=== PATIENT | female | born 1980 | race Caucasian/White ===

== ENCOUNTER 2019-12-26 14:59 | Inpatient (IN) | payer MEDICAID, SELFPAY ==
[~2019-12-26] VITALS: Ht 167.6 cm; Wt 68.0 kg
[2019-12-26 15:24] VITALS: BP 132/66
--- NOTE | 2019-12-26 15:34 | NUR ---
39 Y/O FEMALE C/O WEAKNESS/SOB/FEVER SINCE LAST NIGHT. PT APPEARS LETHARGIC. RESP EVEN AND UNLABORED. LUNG SOUNDS CLEAR IN BILAT LOBES. PT IS SLIGHTLY DIAPHORETIC. SINUS RHYTHM TACHYCARDIC. PT ALSO REPORTS HEMATURIA X1 DAYS, PT IS CURRENTLY TAKING TESTOSTERONE FOR GENDER TRANSITION. PMH: HEP C
[2019-12-26] MEDS ORDERED: NACL 0.9% 2,000 ML IV ONE (15:40)
--- NOTE | 2019-12-26 15:57 | NUR ---
PT STATES UNABLE TO URINATE AT THIS TIME, ERMD MADE AWARE
[2019-12-26 16:02] LABS: HEMATOCRIT 46.2 % (36-48); HEMOGLOBIN 15.3 g/dL (12.0-16.0); MEAN CORPUSCULAR HEMOGLOBIN 31 pg (27-31); MEAN CORPUSCULAR HGB CONC 33 g/dL (33-37); MEAN CORPUSCULAR VOLUME 94.5 fL (80-94); PLATELET COUNT (AUTO) 192 K/uL (140-450); RED BLOOD CELL COUNT(AUTO) 4.89 MIL/uL (4.20-5.40); RED CELL DISTRIBUTION WIDTH 12.7 % (11.6-13.7); WHITE BLOOD COUNT (AUTO) 16.4 K/uL (4.8-10.8)
[2019-12-26 16:16] LABS: PROTHROMBIN TIME 11.3 secs (10.8-13.4)
--- NOTE | 2019-12-26 16:16 | NUR ---
COVID SWAB SENT TO LAB
[2019-12-26 16:18] LABS: ALBUMIN 3.1 g/dL (3.4-5.0); ANION GAP 11.5 (8-16); CARBON DIOXIDE 27.6 mmol/L (21-32); CREATININE 1.3 mg/dL (0.6-1.3); POTASSIUM 3.1 mmol/L (3.5-5.1); TOTAL BILIRUBIN 1.4 mg/dL (0.0-1.0)
[2019-12-26 16:30] LABS: LYMPHOCYTES % (MANUAL) 1 % (20-46)
[2019-12-26] MEDS ORDERED: PIPERACILLIN/TAZOBACTAM 3.375 GM in DEXTROSE 5% 50 ML IV SCH (16:45)
[2019-12-26] MEDS ORDERED: NACL 0.9% 1,000 ML IV SCH (16:45)
--- NOTE | 2019-12-26 17:28 | NUR ---
CONSENT SIGNED FOR CT WITH CONTRAST
[2019-12-26] MEDS ORDERED: PIPERACILLIN/TAZOBACTAM 3.375 GM VIAL IV ONE (17:45)
--- NOTE | 2019-12-26 18:53 | NUR ---
PT ALERT AND AWAKE, BREATHING EVEN AND UNLABORED. NO DISTRESS NOTED.
--- NOTE | 2019-12-26 19:27 | NUR ---
REPORT GIVEN TO FERMIN MARTINEZ, TRANSFER OF CARE AT THIS TIME
--- NOTE | 2019-12-26 19:27 | NUR ---
RECEIVED REPORT FROM LYNNETTE MARTINEZ
[2019-12-26 22:30] VITALS: BP 109/68
--- NOTE | 2019-12-27 04:00 | NUR ---
PT IN BED NO S/S OF PAIN OR DISTRESS NOTED V/S FOLLOWS: T 98.0 P 84 R 18 B/P 109/68 02 98% ON ROOM AIR. UNIVERSAL PRECAUTIONS IN PLACE.
--- NOTE | 2019-12-27 05:30 | NUR ---
HUNG ZOSYN 3.375MG NO ADVERSE EFECTS OF MEDS NOTED.
[2019-12-27] MEDS ORDERED: PIPERACILLIN/TAZOBACTAM 3.375 GM VIAL IV ONE (05:45)
[2019-12-27] MEDS ORDERED: ACETAMINOPHEN 325 MG TAB PO PRN ×2 (06:15→08:25)
[2019-12-27] MEDS ORDERED: HYDROcodone/APAP 5/325 MG 1 TAB TAB PO PRN (06:15)
[2019-12-27] MEDS: DEXTROSE 5% 1,000 ML IV SCH ×2 (07:10→20:41)
--- NOTE | 2019-12-27 07:25 | NUR ---
RECEIVED PATIENT FROM NIGHT NURSE. PATIENT IS AWAKE, ALERT, ORIENTED X4. PATIENT ABLE TO MAKE NEEDS KNOWN. RESP EVEN AND UNLABORED ON ROOM AIR. DENIES OF PAIN AT THIS TIME. NO NOTED DISTRESS. IVF INTACT AND PATENT, INFUSING WELL. PLAN OF CARE DISCUSSED WITH PATIENT, PATIENT VERBALIZED UNDERSTANDING. SAFETY MEASURES IN PLACE. WILL CONTINUE TO MONITOR.
[2019-12-27 08:00] VITALS: BP 100/65
[2019-12-27] MEDS ORDERED: DOCUSATE SODIUM 100 MG GELCAP PO PRN (08:25)
[2019-12-27] MEDS ORDERED: guaiFENesin DM 200/20 MG-10 ML 10 ML UDC PO PRN (08:25)
[2019-12-27] MEDS ORDERED: HYDROcodone/APAP 7.5/325 MG 1 TAB PO PRN (08:25)
[2019-12-27] MEDS ORDERED: ZOLPIDEM 5 MG TAB PO PRN (08:25)
[2019-12-27] MEDS ORDERED: ONDANSETRON 4 MG/2 ML VIAL IM/IVP PRN (08:25)
[2019-12-27] MEDS ORDERED: POTASSIUM CHLORIDE 10 MEQ TABER PO PRN (08:25)
[2019-12-27] MEDS: PANTOPRAZOLE 40 MG TABEC PO SCH (08:52)
--- NOTE | 2019-12-27 08:57 | NUR ---
MORNING ROUTINE MEDICATIONS GIVEN. PATIENT TOLERATED WELL. PATIENT IN BED WATCHING TV. DENIES OF PAIN OR DISTRESS AT THIS TIME. PATIENT REPORTED NO FURTHER VAGINAL BLEEDING AT THIS TIME. VITALS WNL. SAFETY MEASURES IN PLACE. WILL CONTINUE TO MONITOR.
[2019-12-27] MEDS ORDERED: POTASSIUM CHLORIDE 40 MEQ, LIDOCAINE MPF 1% 25 MG in NACL 0.9% 250 ML IV SCH (09:30)
[2019-12-27 09:35] LABS: BASOPHILS % (AUTO) 0.2 % (0.0-2.0); EOSINOPHILS # (AUTO) 0.2 K/uL (0-0.4); EOSINOPHILS % (AUTO) 1.3 % (0.0-4.0); HEMOGLOBIN 13.6 g/dL (12.0-16.0); LYMPHOCYTES # (AUTO) 1.5 K/uL (2.5-16.5); LYMPHOCYTES % (AUTO) 9.4 % (20.5-51.1); MEAN CORPUSCULAR HEMOGLOBIN 31 pg (27-31); MEAN CORPUSCULAR HGB CONC 33 g/dL (33-37); MEAN CORPUSCULAR VOLUME 94.1 fL (80-94); MONOCYTES # (AUTO) 1.1 K/uL (0.8-1.0); MONOCYTES % (AUTO) 6.8 % (1.7-9.3); NEUTROPHILS # (AUTO) 12.9 K/uL (1.8-7.7); NEUTROPHILS % (AUTO) 82.3 % (42.2-75.2); PLATELET COUNT (AUTO) 179 K/uL (140-450); RED BLOOD CELL COUNT(AUTO) 4.35 MIL/uL (4.20-5.40); RED CELL DISTRIBUTION WIDTH 13.2 % (11.6-13.7); WHITE BLOOD COUNT (AUTO) 15.7 K/uL (4.8-10.8)
[2019-12-27 10:06] LABS: PROTHROMBIN TIME 12.2 secs (10.8-13.4)
--- NOTE | 2019-12-27 10:14 | NUR ---
PATIENT HAS BEEN SCREENED AND CATEGORIZED MODERATE NUTRITION RISK. PATIENT WILL BE SEEN WITHIN 3-5 DAYS OF ADMISSION. 12/29/19 12/31/[address]
[2019-12-27 10:27] LABS: ALBUMIN 2.7 g/dL (3.4-5.0); ANION GAP 10.7 (8-16); CARBON DIOXIDE 27.8 mmol/L (21-32); CREATININE 0.8 mg/dL (0.6-1.3); POTASSIUM 3.5 mmol/L (3.5-5.1); TOTAL BILIRUBIN 0.8 mg/dL (0.0-1.0)
[2019-12-27] MEDS ORDERED: DOXYCYCLINE 100 MG in DEXTROSE 5% 100 ML IV SCH (10:30)
[2019-12-27 10:50] LABS: CHOL/HDL RATIO 3.5 (1-4.5); MAGNESIUM 1.7 mg/dL (1.8-2.4); PHOSPHORUS 2.4 mg/dL (2.5-4.9)
[2019-12-27 10:51] LABS: FREE T4 (FREE THYROXINE) 1.05 ng/dL (0.76-1.46); THYROID STIMULATING HORMONE 0.29 uIU/mL (0.34-3.74)
--- NOTE | 2019-12-27 11:25 | NUR ---
PATIENT COMFORTABLE IN BED WATCHING TV. DENIES OF PAIN AT THIS TIME. KRIDER INFUSING WELL. WILL WAIT FOR COMPLETION TO ADMINISTER IV ABT. PATIENT MADE AWARE OF NPO STATUS AND VERBALIZED UNDERSTANDING. CALL LIGHT WITHIN REACH. ABLE TO MAKE NEEDS KNOWN. WILL CONTINUE TO MONITOR.
[2019-12-27 12:00] VITALS: BP 108/56
--- NOTE | 2019-12-27 12:45 | NUR ---
MARKETING SERVICES REP NOTE: Patient's Orientation Person Situation Place Time Information Provided By PATIENT Comments SW MET PATIENT AT BEDSIDE TO COMPLETE ASSESSMENT. Tower Hoist Operator, Realtionship and Phone Number PATRICIA LYN SIGNIFICANT OTHER [phone] [facility] Power of Computer Project Manager No Does Patient Have a POLST No Identifying Problems No Social Work Triggers Is A Social Work Consult Needed No Mandate Report Filed No Explanation Of Identifying Problems PATIENT IS A 39-YEAR-OLD TRANSGENDER FEMALE ADMITTED FOR SEPSIS. PATIENT HAS PMHX OF HEP C. PATIENT DENIED SUBSTANCE ABUSE DESPITE METHAMPHETAMINES IN LABS. SW OFFERED SUBSTANCE ABUSE RESOURCES BUT PATIENT REFUSED. PATIENT DENIED MENTAL HEALTH HISTORY. Admitted From Home Pre-Admission Level Of Functioning Status Independent/Ambulatory Prior Resources/Services Used In Last 12 Months No Prior Resources Used Prior DME No Prior DME Used Living Situation Lives W/Significant Other House Patient Had Caregiver No Home Support No Caregiver Issues Financial Issues No Known Financial Issue Referral To The Financial Counselor Needed No Factors/Needs No D/C Needs Identified Pt/Rep Participated In Discharge Plan Yes Patient/Family Agress With Discharge Plan Yes Discharge Plan Comments TENTATIVE DISCHARGE PLAN IS FOR PATIENT TO RETURN HOME. DC Plan Status Initiated
[2019-12-27] MEDS ORDERED: PIPERACILLIN/TAZOBACTAM 3.375 GM in DEXTROSE 5% 50 ML IV SCH (13:00)
--- NOTE | 2019-12-27 13:44 | NUR ---
DISCHARGE PLANNING: THIS IS A 39 Y/O TRANSGENDERED FEMALE PATIENT FROM HOME, WHO CAME IN DUE TO FEVER, CHILLS AND SWEATINESS. PAST MEDICAL HISTORY INCLUDE SUBSTANCE ABUSE AND HEPATITIS C. INITIAL DIAGNOSIS OF SEPSIS, R/O PID. CURRENT LABS INCLUDE WBC 15.7, H/H 13.6/41.0, NA/K 140/3.5, BUN/CREA 7/0.8, PHOS/MAG 2.4/1.7, ALB 2.7, TSH 0.29. COVID NEGATIVE. ON CEFOXITIN, DOXYCYCLINE. URINE, BLOOD AND CERVIX CS PENDING. CXR NORMAL. OB-PATIENT SCHEDULING COORDINATOR CONSULTED, NOT SEEN YET. DC PLAN PENDING ON PATIENT'S RESPONSE TO TREATMENT. Addendum: 12/28/19 at 1141 by Gracie Chaves SEEN BY OB-PATIENT SCHEDULING COORDINATOR - DC HOME HOME WITH DOXYCYCLINE 100MG DAILY X 2 WEEKS AND CONSIDER TO ADD METRONIDAZOLE 500MG X2. FOLLOW UP IN OP CLINIC IN 2 WEEKS AFTER DC.
--- NOTE | 2019-12-27 14:49 | NUR ---
VIBRAMYCIN IVPB STARTED NOW. KRIDER 40MEQ WAS ADMINISTERED FIRST.
[2019-12-27 16:00] VITALS: BP 103/73
--- NOTE | 2019-12-27 16:26 | NUR ---
MEFOXIN IVPB HUNG AT THIS TIME.
[2019-12-27 16:52] LABS: APPEARANCE,URINE CLOUDY (CLEAR); BILIRUBIN,URINE NEGATIVE (NEGATIVE); BLOOD, URINE 2+ (NEGATIVE); COLOR,URINE ORANGE (YELLOW); LEUKOCYTE ESTERASE ,URINE 3+ (NEGATIVE); NITRITE, URINE NEGATIVE (NEGATIVE); UGLUCOSE NEGATIVE (NEGATIVE)
[2019-12-27 17:13] LABS: WBC,URINE TOO MANY TO COUNT /HPF (0-5)
[2019-12-27] MEDS ORDERED: MAGNESIUM OXIDE 400 MG TAB PO ONE (19:05)
--- NOTE | 2019-12-27 19:23 | NUR ---
CARDINAL AFTER HOURS PHARMACY SYSTEM IS DOWN AND UNABLE TO VERIFY NEW ORDERS AT THIS TIME. ENDORSE MAG OXIDE 800MG PO X1 TO BE GIVEN WITH NIGHT NURSE. PATIENT IN STABLE CONDITION.
--- NOTE | 2019-12-27 19:37 | NUR ---
RECEIVED BEDSIDE REPORT FROM DAY SHIFT NURSE. PATIENT IS AWAKE AND COOPERATIVE. RESPIRATION EVEN UNLABORED ON ROOM AIR. NO DISTRESS NOTED. SKIN IS WARM AND DRY. IV PATENT AND INTACT. PLAN OF CARE WAS DISCUSSED. ALL SAFETY MEASURES IN PLACE. BED IS AT LOW POSITION. CALL LIGHT WITHIN REACH. WILL CONTINUE TO MONITOR.
[2019-12-27 20:00] VITALS: BP 114/62
--- NOTE | 2019-12-27 20:15 | NUR ---
INITIAL ASSESSMENT DONE. VITALS WERE TAKEN. REMIND PATIENT FOR URINE COLLECTION.
[2019-12-27] MEDS ORDERED: MAGNESIUM OXIDE 400 MG TAB ONE (22:23)
--- NOTE | 2019-12-27 22:24 | NUR ---
ADMINISTERED MAG OX 800MG PO PER ORDER. WILL CONTINUE TO MONITOR.
[2019-12-27 23:00] LABS: BARBITURATE, URINE NEGATIVE ng/ml (NEG <=200); BENZODIAZEPINE, URINE NEGATIVE ng/mL (NEG <=200); CANNABINOID, URINE NEGATIVE ng/mL (NEG <=50); COCAINE, URINE NEGATIVE ng/mL (NEG <=300); OPIATE, URINE NEGATIVE ng/mL (NEG <=2000); PHENCYCLIDINE SCREEN,URINE NEGATIVE ng/mL (NEG <=25)
--- NOTE | 2019-12-27 23:30 | NUR ---
URINE SAMPLE COLLECTED. SENT TO LAB.
[2019-12-28] VITALS: BP 114/65
--- NOTE | 2019-12-28 00:05 | NUR ---
VITALS WERE TAKEN. PATIENT IN STABLE CONDITION. NO DISTRESS NOTED. WILL CONTINUE TO MONITOR.
--- NOTE | 2019-12-28 02:05 | NUR ---
CHECKED PATIENT. PATIENT SLEEPING RESPIRATION EVEN UNLABORED ON ROOM AIR. NO DISTRESS NOTED. WILL CONTINUE TO MONITOR
[2019-12-28 04:00] VITALS: BP 102/53
--- NOTE | 2019-12-28 04:00 | NUR ---
VITALS WERE TAKEN. PATIENT IN STABLE CONDITION. NO DISTRESS NOTED. WILL CONTINUE TO MONITOR
[2019-12-28 05:23] LABS: BASOPHILS % (AUTO) 0.3 % (0.0-2.0); EOSINOPHILS # (AUTO) 0.3 K/uL (0-0.4); EOSINOPHILS % (AUTO) 4.3 % (0.0-4.0); HEMATOCRIT 44.7 % (36-48); HEMOGLOBIN 15.3 g/dL (12.0-16.0); LYMPHOCYTES # (AUTO) 1.2 K/uL (2.5-16.5); LYMPHOCYTES % (AUTO) 19.7 % (20.5-51.1); MEAN CORPUSCULAR HEMOGLOBIN 32 pg (27-31); MEAN CORPUSCULAR HGB CONC 34 g/dL (33-37); MEAN CORPUSCULAR VOLUME 93.9 fL (80-94); MONOCYTES # (AUTO) 0.5 K/uL (0.8-1.0); MONOCYTES % (AUTO) 8.3 % (1.7-9.3); NEUTROPHILS # (AUTO) 4.2 K/uL (1.8-7.7); NEUTROPHILS % (AUTO) 67.4 % (42.2-75.2); PLATELET COUNT (AUTO) 175 K/uL (140-450); RED BLOOD CELL COUNT(AUTO) 4.76 MIL/uL (4.20-5.40); RED CELL DISTRIBUTION WIDTH 12.8 % (11.6-13.7); WHITE BLOOD COUNT (AUTO) 6.3 K/uL (4.8-10.8)
[2019-12-28 05:58] LABS: ANION GAP 10.6 (8-16); CARBON DIOXIDE 27.3 mmol/L (21-32); CREATININE 0.9 mg/dL (0.6-1.3); POTASSIUM 3.9 mmol/L (3.5-5.1)
--- NOTE | 2019-12-28 07:09 | NUR ---
ENDORSED PATIENT TO DAY SHIFT NURSE AT BEDSIDE FOR CONTINUITY OF CARE.
--- NOTE | 2019-12-28 07:10 | NUR ---
RECEIVED REPORT FROM PM RNROBERT. PT CAME FROM HOME. C/O: ABD PAIN, [id number]. DX: R/O SEPSIS, PID. HX: SUBSTANCE ABUSE, HEP C. ALLERGIES: PCN. NSR. FULL CODE. IV SITE/IVF: RAC 18G, D5 AT 70MLS. REGULAR DIET. A&OX4. PT IS ON RA. PT IS AMBULATORY. SKIN IS INTACT. PLAN: CONSULT WITH DR SPENCE, ANTIBIOTICS, PENDING CULTURE, AND MONITOR MG 1.7.
[2019-12-28 08:08] LABS: T4 (THYROXINE) 8.1 ug/dL (4.5-12.0)
[2019-12-28] MEDS ORDERED: MAGNESIUM OXIDE 400 MG TAB PO SCH (09:00)
--- NOTE | 2019-12-28 09:00 | NUR ---
PASSED MEDICATIONS TO PT. PT TOLERATED MEDICATION PASS WELL. NO COMPLAINTS OF PAIN.
[2019-12-28] MEDS: PANTOPRAZOLE 40 MG TABEC PO SCH (09:56)
--- NOTE | 2019-12-28 12:30 | NUR ---
RECEIVED ORDERS OF DC FROM DR. REBOLLAR. PT NOTIFIED.
[2019-12-28] MEDS ORDERED: DOXY100C9 PO (13:00)
[2019-12-28] MEDS ORDERED: METR250T2 PO (13:00)
--- NOTE | 2019-12-28 13:00 | NUR ---
PT WAS NOT IN ROOM. CHARGE NURSE NOTIFIED. SECURITY CALLED. UNABLE TO FIND PT ON MST UNIT. DR. REBOLLAR NOTIFIED. NO EVIDENCE OF IV CANULA REMOVED.
--- NOTE | 2019-12-28 13:15 | NUR ---
LUCAS OSBORNE NOTIFIED OF PTS BEING MISSING FROM HOSPITAL. DISPATCHER HAS SENT AN OFFICER TO PTS HOUSE.
[2019-12-28 13:17] VITALS: BP 106/73
--- NOTE | 2019-12-28 13:23 | NUR ---
CALL PLACE TO [phone], ALBERT BERNAL, LEAVE MESSAGE REGARDING DISCHARGE PAPER WORKS, LEAVE MESSAGE ALSO TO PATRICIA LYN, RELAYED TO ANGEL
--- NOTE | 2019-12-28 13:30 | NUR ---
[place] POLICE ARRIVED AT PTS HOME, PTS FAMILY CALLED BACK TO NOTIFY THAT THE PT WAS ABLE TO REMOVE CANULA. NO FURTHER INSTRUCTIONS REQUIRED. PTS FAMILY MEMBER EXPRESSED SINCERE APOLOGIES FOR PTS ACTIONS.
[2020-01-01 06:13] LABS: CHLAMYDIA TRACHOMATIS AMP DNA Negative (Negative)
[2020-01-01] MEDS ORDERED: CEFI400C PO (17:37)
[2020-01-01] MEDS ORDERED: DOXY100C9 PO (17:37)
== END 2019-12-28 13:00 | disposition left against medical advice (07) | DRG 720 ==
LOC: MED 14:59 → MMU 20:55
PROVIDERS: ADMIT Family Medicine; ATTEND Family Medicine
DX: A41.9 Sepsis, unspecified organism (principal); K52.9 Noninfective gastroenteritis and colitis, unspecified; E44.1 Mild protein-calorie malnutrition; Z68.24 Body mass index [BMI] 24.0-24.9, adult; K21.9 Gastro-esophageal reflux disease without esophagitis; E87.6 Hypokalemia; N73.9 Female pelvic inflammatory disease, unspecified; N30.00 Acute cystitis without hematuria; R16.0 Hepatomegaly, not elsewhere classified; K46.9 Unspecified abdominal hernia without obstruction or gangrene; Z20.828 Contact with and (suspected) exposure to other viral communicable diseases
CPT/HCPCS: 36415; 71045; 76856; 80048; 80053; 80305; 81001; 82150; 82550; 83036; 83605; 83690; 83735; 83880; 84100; 84436; 84439; 84443; 84479; 84484; 85025; 85610; 85730; 87040; 87070; 87075; 87081; 87086; 87205; 87491; 93005; 96361; 96365; 99291; J0694; J2001; J2543; J3480; J3490; J7030; J7060; Q0092; Q9967

== ENCOUNTER 2020-12-05 18:14 | Emergency (ER) | payer MEDICAID, SELFPAY ==
[~2020-12-05] VITALS: Ht 165.1 cm; Wt 65.8 kg
[~2020-12-05 18:14] MED LIST: CEFI400C PO; DOXY-690 PO; METR-520 PO
[2020-12-05 18:20] VITALS: BP 148/79
[2020-12-05] MEDS ORDERED: ACETAMINOPHEN EXTRA STRENGTH 500 MG TAB PO ONE (18:55)
[2020-12-05] MEDS ORDERED: NACL 0.9% 1,000 ML IV ONE ×2 (18:55→19:45)
[2020-12-05] MEDS ORDERED: KETOROLAC 30 MG/ML VIAL IM ONE (18:55)
[2020-12-05 19:01] LABS: APPEARANCE,URINE CLOUDY (CLEAR); BILIRUBIN,URINE 1+ (NEGATIVE); BLOOD, URINE TRACE-I (NEGATIVE); COLOR,URINE ORANGE (YELLOW); LEUKOCYTE ESTERASE ,URINE 2+ (NEGATIVE); NITRITE, URINE POSITIVE (NEGATIVE); PH,URINE 7.5 (5.0-9.0); UGLUCOSE NEGATIVE (NEGATIVE)
--- NOTE | 2020-12-05 19:09 | NUR ---
PT W/C ASSITED TO BED #9
[2020-12-05 19:29] LABS: BASOPHILS % (AUTO) 0.5 % (0.0-2.0); EOSINOPHILS % (AUTO) 0.4 % (0.0-4.0); HEMATOCRIT 47.2 % (36-48); HEMOGLOBIN 15.9 g/dL (12.0-16.0); LYMPHOCYTES % (AUTO) 10.3 % (20.5-51.1); MEAN CORPUSCULAR HEMOGLOBIN 31 pg (27-31); MEAN CORPUSCULAR HGB CONC 34 g/dL (33-37); MEAN CORPUSCULAR VOLUME 93.1 fL (80-94); MONOCYTES % (AUTO) 10.9 % (1.7-9.3); NEUTROPHILS # (AUTO) 7.4 K/uL (1.8-7.7); NEUTROPHILS % (AUTO) 77.9 % (42.2-75.2); PLATELET COUNT (AUTO) 156 K/uL (140-450); RED BLOOD CELL COUNT(AUTO) 5.07 MIL/uL (4.20-5.40); RED CELL DISTRIBUTION WIDTH 13.2 % (11.6-13.7); WHITE BLOOD COUNT (AUTO) 9.5 K/uL (4.8-10.8)
[2020-12-05] MEDS ORDERED: KETOROLAC 15 MG/ML VIAL IVP ONE (19:45)
[2020-12-05 19:56] LABS: ANION GAP 10.5 (8-16); CARBON DIOXIDE 28.3 mmol/L (21-32); POTASSIUM 3.8 mmol/L (3.5-5.1); TOTAL BILIRUBIN 1.6 mg/dL (0.0-1.0)
--- NOTE | 2020-12-05 19:56 | NUR ---
PATIENT BIB SELF FOR C/O R FLANK PAIN X 2 DAYS. PER PATIENT DENIES ANY BUIRING OF PAINFUL URINATION. PATIENT STATES CAME TO ER WHEN NOTICED THAT URINE WAS ORANG IN COLOR. PATIENT STATES ONLY C/O IS INTERMITTENT FEVER, CHILLS, AND 8/10 R FLANK PAIN. MEDHX: PATIENT DENIES HX. PER RECORD PATIENT HAS HX OF HEP C AND TRANSGENDER F-M ALELRGIES: KEITHN
[2020-12-05] MEDS ORDERED: ACETAMINOPHEN EXTRA STRENGTH 500 MG TAB ONE (20:09)
[2020-12-05] MEDS ORDERED: cefTRIAXone 1,000 MG VIAL ONE (20:10)
[2020-12-05 20:20] LABS: RBC,URINE 0-5 /HPF (0-5)
[2020-12-05 20:21] LABS: WBC,URINE 20-60 /HPF (0-5)
[2020-12-05] MEDS ORDERED: LEVO750T51 PO ×2 (20:50→22:57)
[2020-12-05] MEDS ORDERED: IBUP-2213 PO ×2 (20:50→22:57)
[2020-12-05] MEDS ORDERED: ACET-10509 PO ×2 (20:50→22:57)
--- NOTE | 2020-12-05 21:00 | NUR ---
PATIENT STATES PAIN ON R FLANK REDUCED FROM 10/10 TO 3/10. PATIENT STATES PAIN IS TOLERABLE, " I FEEL A LOT BETTER." PATIENT REMAINS AFEBRILE.
--- NOTE | 2020-12-05 21:39 | NUR ---
Patient's remains on cardac monitor. patient vss remain stable. patient has recived bolus and heart rate had decreases. ERMD made aware and gave orders for possible d/c s/p administration of IV antibiotics and IFV.
[2020-12-05 23:03] VITALS: BP 121/73
--- NOTE | 2020-12-05 23:03 | NUR ---
Patient discharged with v/s stable. Written and verbal after care instructions given and explained. Patient alert, oriented and verbalized understanding of instructions. Ambulatory with steady gait. All questions addressed prior to discharge. ID band removed. Patient advised to follow up with PMD. Rx of ACETOMINOPHEN, IBUPROFEN, LEVOFLOXACIN given. Patient educated on indication of medication including possible reaction and side effects. Opportunity to ask questions provided and answered.
== END 2020-12-05 23:03 | disposition home or self-care (01) ==
LOC: MED 18:14
DX: N12 Tubulo-interstitial nephritis, not specified as acute or chronic (principal); R00.0 Tachycardia, unspecified; Z88.0 Allergy status to penicillin; Z79.899 Other long term (current) drug therapy; Z86.19 Personal history of other infectious and parasitic diseases
CPT/HCPCS: 36415; 72100; 80053; 81001; 81025; 83605; 85025; 87040; 87086; 96361; 96365; 96375; 99285; J0696; J1885; J7030